=== PATIENT | female | born 1940 | race Two or more races ===

== ENCOUNTER 2017-04-09 20:15 | Inpatient (IN) | payer MEDICARE ==
[~2017-04-09] VITALS: Ht 165.1 cm; Wt 67.6 kg
[~2017-04-09 20:15] MED LIST: ASPIRIN EC81 MG ORAL; ATENOLOL50 MG ORAL; ATORVASTATIN CA20 MG ORAL; GABAPENTIN100 MG ORAL; HYDROCHLOROTHIA25 MG ORAL; MEGACE ES625 MG/5 M PO; MELOXICAM15 MG PO
[2017-04-09] MEDS ORDERED: MAGNESIUM OXID500 M2 PO (20:16)
[2017-04-09] MEDS ORDERED: LEVOTHYROXINE50 MCG ORAL (20:16)
[2017-04-09] MEDS ORDERED: CATAPRES0.1 MG ORAL (20:17)
[2017-04-09 20:24] VITALS: BP 97/55
[2017-04-09] MEDS ORDERED: ATROVENT HFA12.9 GM IH (20:33)
[2017-04-09] MEDS ORDERED: PROAIR HFA8.5 GM INH (20:33)
[2017-04-09] MEDS ORDERED: TRAMADOL HCL50 MG ORAL (20:34)
[2017-04-09] MEDS ORDERED: AMBIEN5 MG ORAL (20:36)
[2017-04-09] MEDS ORDERED: mylanta ORAL (20:36)
[2017-04-09] MEDS ORDERED: NORCO 5-325 TA1 EACH ORAL (20:37)
[2017-04-09 21:22] LABS: ALANINE AMINOTRANSFERASE 6 U/L (3-33); ALBUMIN/GLOBULIN RATIO 0.8 (1.0-2.7); ANION GAP 12 (5-15); ASPARTATE AMINO TRANSFERASE 12 U/L (5-40); CARBON DIOXIDE 27 mEQ/L (20-30); CHLORIDE 95 mEQ/L (98-107); CREATININE 0.8 mg/dL (0.5-0.9); HEMOLYSIS 0; POTASSIUM 4.2 mEQ/L (3.4-4.9); SODIUM 134 mEQ/L (135-145); TOTAL PROTEIN 6.6 g/dL (6.6-8.7); TROPONIN I < 0.30 ng/mL (<=0.30)
[2017-04-09 21:28] LABS: MEAN CORPUSCULAR HEMOGLOBIN 32.6 PG (27.0-31.0); MEAN CORPUSCULAR HGB CONC 32.9 G/DL (32.0-36.0); MEAN CORPUSCULAR VOLUME 99 FL (80-99); MEAN PLATELET VOLUME 5.3 FL (6.5-10.1); PLATELET COUNT 291 K/UL (150-450); RED BLOOD COUNT 1.99 M/UL (4.20-5.40); RED CELL DISTRIBUTION WIDTH 15.8 % (11.6-14.8); WHITE BLOOD COUNT 5.5 K/UL (4.8-10.8)
[2017-04-09 21:33] LABS: CKMB < 1.5 ng/mL (< 3.8)
[2017-04-09 21:37] LABS: APPEARANCE,URINE SLIGHTLY CLOUDY; KETONES,URINE NEGATIVE (NEGATIVE); LEUKOCYTE ESTERASE ,URINE 3+ (NEGATIVE); NITRITE,URINE NEGATIVE (NEGATIVE); PH,URINE 6 (4.5-8.0); PROTEIN,URINE NEGATIVE (NEGATIVE); UROBILINOGEN,URINE NORMAL MG/DL (0.0-1.0)
[2017-04-09 21:42] LABS: BACTERIA,URINE MANY /HPF; SQUAMOUS EPITHELIAL CELL,UR OCCASIONAL /LPF (NONE/OCC); WBC,URINE 30-40 /HPF (0 - 2)
[2017-04-09 21:46] LABS: PROTHROMBIN TIME 10.8 SEC (9.30-11.50)
[2017-04-09] MEDS ORDERED: cefTRIAXone 1 GM in NS 55 ML IVPB ONE (22:15)
[2017-04-09 22:16] VITALS: BP 107/58
[2017-04-09 22:26] LABS: BAND NEUTROPHILS % (MANUAL) 4 % (0-8); BASOPHILS % (MANUAL) 0 % (0-2); EOSINOPHILS % (MANUAL) 1 % (0-3); LYMPHOCYTES % (MANUAL) 24 % (20-45); NEUTROPHILS % (MANUAL) 63 % (45-75); PLATELET ESTIMATE ADEQUATE; TOTAL CELLS COUNTED 100
[2017-04-09 22:27] LABS: ANISOCYTOSIS 1+; MACROCYTES 1+; PLATELET MORPHOLOGY NORMAL; POLYCHROMASIA 1+
[2017-04-09] MEDS ORDERED: Zolpidem 5mg tab ORAL PRN (22:30)
[2017-04-09] MEDS ORDERED: Morphine Sulfate 2mg/ml Inj IVP PRN (22:30)
[2017-04-09] MEDS ORDERED: Miralax 17gm pkt ORAL PRN (22:30)
[2017-04-09] MEDS ORDERED: LORazepam Inj 2mg/ml 1ml IV PRN (22:30)
[2017-04-09] MEDS ORDERED: Mylanta II UD 30ml ORAL PRN (22:30)
--- NOTE | 2017-04-09 22:33 | Emergency Room Report ---
History of Present Illness General Chief Complaint: Abnormal Labs Source: Medical Record Present Illness HPI 76-year-old female presents ED for evaluation. Patient sent in for low hemoglobin and hematocrit from her lab work done recently. [facility] Upon arrival patient showing no signs of distress. Denies any pain. Denies any bleeding. No other aggravating or relieving factors. Denies any other associated symptom Allergies: Coded Allergies: No Known Allergies (Unverified , 04/09/17) Patient History Past Medical History: HTN, other - breast ca' Past Surgical History: none Pertinent Family History: none Social History: Denies: smoking, alcohol use, drug use Now: No Immunizations: UTD Reviewed Nursing Documentation: PMH: Agreed, PSxH: Agreed Nursing Documentation-PMH Past Medical History: No History, Except For Hx Hypertension: Yes Hx Cancer: Yes - h/o breast CA Review of Systems All Other Systems: negative except mentioned in HPI Physical Exam Vital Signs Date Time Temp Pulse Resp B/P (MAP) Pulse Ox O2 Delivery O2 Flow Rate FiO2 04/09/17 20:06 86 14 102/56 95 Room Air 04/09/17 20:24 100.1 Sp02 EP Interpretation: reviewed, normal General Appearance: no apparent distress, alert, GCS 15, non-toxic Head: normocephalic, atraumatic Eyes: bilateral eye normal inspection, bilateral eye PERRL ENT: hearing grossly normal, normal pharynx, no angioedema, normal voice Neck: full range of motion, supple/symm/no masses Respiratory: chest non-tender, lungs clear, normal breath sounds, speaking full sentences Cardiovascular #1: regular rate, rhythm, no edema Cardiovascular #2: 2+ carotid (R), 2+ carotid (L), 2+ radial (R), 2+ radial (L) , 2+ dorsalis pedis (R), 2+ dorsalis pedis (L) Gastrointestinal: normal bowel sounds, non tender, soft, non-distended, no guarding, no rebound Rectal: deferred Genitourinary: normal inspection, no CVA tenderness Musculoskeletal: back normal, gait/station normal, normal range of motion, non- tender Neurologic: alert, oriented x3, responsive, motor strength/tone normal, sensory intact, speech normal Psychiatric: judgement/insight normal, memory normal, mood/affect normal, no suicidal/homicidal ideation Reflexes: 3+ bicep (R), 3+ bicep (L), 3+ tricep (R), 3+ tricep (L), 3+ knee (R) , 3+ knee (L) Skin: normal color, no rash, warm/dry, well hydrated Lymphatic: no adenopathy Medical Decision Making Diagnostic Impression: Primary Impression: Anemia Qualified Codes: D64.9 - Anemia, unspecified Additional Impression: UTI (urinary tract infection) Qualified Codes: N39.0 - Urinary tract infection, site not specified ER Course Hospital Course 76-year-old female presents to ED for evaluation of possible anemia Differential diagnoses include: anemia requiring transfusion, microcytic anemia , macrocytic anemia, heavy blood loss Clinical course Patient placed on stretcher. After initial history and physical I ordered labs including CBC and type and screen. Labs- hemoglobin 6.5. no leukocytosis, Electrolytes okay, UA + bacteria EKG - NSR, no acute changes interpreted by me CXR mild atelectasis PRBCs ordered. Abx given Case discussed with PMD Dr. ludwig who agreed to admit the patient to his service for further care/support Diagnosis - anemia, UTI Admitted to floor in serious condition Labs Test 04/09/17 20:50 04/09/17 20:55 White Blood Count 5.5 K/UL (4.8-10.8) Red Blood Count 1.99 M/UL (4.20-5.40) Hemoglobin 6.5 G/DL (12.0-16.0) Hematocrit 19.7 % (37.0-47.0) Mean Corpuscular Volume 99 FL (80-99) Mean Corpuscular Hemoglobin 32.6 PG (27.0-31.0) Mean Corpuscular Hemoglobin Concent 32.9 G/DL (32.0-36.0) Red Cell Distribution Width 15.8 % (11.6-14.8) Platelet Count 291 K/UL (150-450) Mean Platelet Volume 5.3 FL (6.5-10.1) Neutrophils (%) (Auto) % (45.0-75.0) Lymphocytes (%) (Auto) % (20.0-45.0) Monocytes (%) (Auto) % (1.0-10.0) Eosinophils (%) (Auto) % (0.0-3.0) Basophils (%) (Auto) % (0.0-2.0) Differential Total Cells Counted 100 Neutrophils % (Manual) 63 % (45-75) Lymphocytes % (Manual) 24 % (20-45) Monocytes % (Manual) 8 % (1-10) Eosinophils % (Manual) 1 % (0-3) Basophils % (Manual) 0 % (0-2) Band Neutrophils 4 % (0-8) Platelet Estimate Adequate Platelet Morphology Normal Polychromasia 1+ Anisocytosis 1+ Macrocytosis 1+ Prothrombin Time 10.8 SEC (9.30-11.50) Prothromb Time International Ratio 1.0 (0.9-1.1) Activated Partial Thromboplast Time 33 SEC (23-33) Sodium Level 134 mEQ/L (135-145) Potassium Level 4.2 mEQ/L (3.4-4.9) Chloride Level 95 mEQ/L (98-107) Carbon Dioxide Level 27 mEQ/L (20-30) Anion Gap 12 (5-15) Blood Urea Nitrogen 9 mg/dL (7-23) Creatinine 0.8 mg/dL (0.5-0.9) Estimat Glomerular Filtration Rate mL/min (>60) Glucose Level 98 mg/dL (74-106) Lactic Acid Level 0.80 mmol/L (0.66-2.22) Calcium Level 8.0 mg/dL (8.6-10.2) Total Bilirubin 0.2 mg/dL (0.0-1.2) Aspartate Amino Transf (AST/SGOT) 12 U/L (5-40) Alanine Aminotransferase (ALT/SGPT) 6 U/L (3-33) Alkaline Phosphatase 695 U/L (35-104) Total Creatine Kinase 33 U/L (26-140) Creatine Kinase MB < 1.5 ng/mL (< 3.8) Creatine Kinase MB Relative Index Troponin I < 0.30 ng/mL (<=0.30) Pro-B-Type Natriuretic Peptide 414 pg/mL (0-125) Total Protein 6.6 g/dL (6.6-8.7) Albumin 3.0 g/dL (3.5-5.2) Globulin 3.6 g/dL Albumin/Globulin Ratio 0.8 (1.0-2.7) Urine Color Pale yellow Urine Appearance Slightly cloudy Urine pH 6 (4.5-8.0) Urine Specific [place] 1.005 (1.005-1.035) Urine Protein Negative (NEGATIVE) Urine Glucose (UA) Negative (NEGATIVE) Urine Ketones Negative (NEGATIVE) Urine Occult Blood 1+ (NEGATIVE) Urine Nitrite Negative (NEGATIVE) Urine Bilirubin Negative (NEGATIVE) Urine Urobilinogen Normal MG/DL (0.0-1.0) Urine Leukocyte Esterase 3+ (NEGATIVE) Urine RBC 10-15 /HPF (0 - 2) Urine WBC 30-40 /HPF (0 - 2) Urine Squamous Epithelial Cells Occasional /LPF Urine Bacteria Many /HPF (NONE) EKG Diagnostic Results Rate: normal Rhythm: NSR ST Segments: no acute changes ASA given to the pt in ED: No Rhythm Strip Diag. Results EP Interpretation: yes Rhythm: NSR, no PVC's, no ectopy Chest X-Ray Diagnostic Results Chest X-Ray Diagnostic Results : Chest X-Ray Ordered: Yes # of Views/Limited/Complete: 1 View Indication: Other - fever EP Interpretation: Yes Interpretation: no consolidation, no pneumothorax, no acute cardiopulmonary disease, other - atelectasis Impression: No acute disease Interpreting ER Provider: Electronically signed by Srikanth Joe MD Last Vital Signs Date Time Temp Pulse Resp B/P (MAP) Pulse Ox O2 Delivery O2 Flow Rate FiO2 04/09/17 22:16 98.0 83 12 107/58 100 Room Air Status: improved Disposition: ADMITTED INPATIENT Condition: Serious Referrals: [facility],REFERRING (PCP) SRIKANTH JOE M.D. Apr 09, 2017 22:32
[2017-04-10 00:40] VITALS: BP 101/48
[2017-04-10 04:00] VITALS: BP 96/52
[2017-04-10 07:49] VITALS: BP 97/50
[2017-04-10 11:03] LABS: BASOPHILS % (AUTO) 0.5 % (0.0-2.0); EOSINOPHILS % (AUTO) 0.8 % (0.0-3.0); LYMPHOCYTES % (AUTO) 25.3 % (20.0-45.0); MEAN CORPUSCULAR HEMOGLOBIN 30.6 PG (27.0-31.0); MEAN CORPUSCULAR HGB CONC 31.5 G/DL (32.0-36.0); MEAN CORPUSCULAR VOLUME 97 FL (80-99); MEAN PLATELET VOLUME 5.1 FL (6.5-10.1); MONOCYTES % (AUTO) 9.2 % (1.0-10.0); NEUTROPHILS % (AUTO) 64.1 % (45.0-75.0); PLATELET COUNT 304 K/UL (150-450); RED BLOOD COUNT 2.92 M/UL (4.20-5.40); RED CELL DISTRIBUTION WIDTH 15.9 % (11.6-14.8); WHITE BLOOD COUNT 5.7 K/UL (4.8-10.8)
[2017-04-10 11:28] LABS: ALANINE AMINOTRANSFERASE 6 U/L (3-33); ALBUMIN/GLOBULIN RATIO 0.8 (1.0-2.7); ANION GAP 11 (5-15); ASPARTATE AMINO TRANSFERASE 12 U/L (5-40); CALCIUM 7.8 mg/dL (8.6-10.2); CARBON DIOXIDE 26 mEQ/L (20-30); CHLORIDE 104 mEQ/L (98-107); CREATININE 0.7 mg/dL (0.5-0.9); HEMOLYSIS 1; POTASSIUM 4.3 mEQ/L (3.4-4.9); SODIUM 141 mEQ/L (135-145); TOTAL PROTEIN 6.5 g/dL (6.6-8.7)
[2017-04-10 11:57] VITALS: BP 117/67
--- NOTE | 2017-04-10 12:28 | Cardiology Report ---
APPROVED REPORT EKG Measurement Heart [id number] Normal sinus rhythm Nonspecific ST and T wave abnormality Abnormal ECG
--- NOTE | 2017-04-10 15:20 | History and Physical ---
History of Present Illness General Date patient seen: Apr 10, 2017 Reason for Hospitalization: Abnormal Labs Present Illness HPI 76 year old female transferred to [facility] [place] for evaluation of low hemoglobin. Pt doens't have any sing or symptoms of acute bleeding. Admitted anemia w/u and transfusion. Allergies: Coded Allergies: No Known Allergies (Unverified , 04/09/17) Medication History Scheduled Albuterol Sulfate* (Proair Hfa*), 1 PUFF INH Q6H, (Reported) Aspirin Ec* (Aspirin Ec*), 81 MG ORAL DAILY, (Reported) Atenolol* (Tenormin*), 50 MG ORAL DAILY, (Reported) Atorvastatin Calcium* (Atorvastatin Calcium*), 20 MG ORAL BEDTIME, (Reported) Clonidine Hcl* (Catapres*), 0.1 MG ORAL EVERY 6 HOURS, (Reported) Gabapentin* (Gabapentin*), 100 MG ORAL THREE TIMES A DAY, (Reported) Hydrochlorothiazide* (Hydrochlorothiazide*), 25 MG ORAL DAILY, (Reported) Levothyroxine Sodium* (Levothyroxine Sodium*), 50 MCG ORAL DAILY, (Reported) Meloxicam* (Meloxicam*), 15 MG PO DAILY, (Reported) Scheduled PRN Hydrocodone Bit/Acetaminophen 5-325* (Meigs 5-325*), 1 TAB ORAL Q4H PRN for For Pain, (Reported) Tramadol Hcl* (Ultram*), 50 MG ORAL Q6H PRN for For Pain, (Reported) Zolpidem Tartrate* (Ambien*), 5 MG ORAL BEDTIME PRN for Insomnia, (Reported) Miscellaneous Medications Ipratropium [place] (Atrovent Hfa), 12.9 GM IH, (Reported) Magnesium Oxide (Magnesium Oxide), 400 MG PO, (Reported) Megestrol Acetate (Megace Es), 400 MG PO, (Reported) [mylanta], 30 ML ORAL, (Reported) Patient History Healthcare decision maker Resuscitation status Advanced Directive on File Past Medical/Surgical History Past Medical/Surgical History: (1) Hypertension (2) Hypothyroid (3) Breast cancer Review of Systems All Other Systems: negative except mentioned in HPI Physical Exam General Appearance: cachetic Lines, tubes and drains: peripheral HEENT: normocephalic, atraumatic Respiratory/Chest: chest wall non-tender, lungs clear Breasts: no masses Cardiovascular/Chest: normal peripheral pulses Abdomen: normal bowel sounds Genitourinary/Rectal: normal genital exam Last 24 Hour Vital Signs Date Time Temp Pulse Resp B/P (MAP) Pulse Ox O2 Delivery O2 Flow Rate FiO2 04/10/17 12:34 117/67 04/10/17 11:57 98.4 89 20 117/67 96 Room Air 04/10/17 08:22 87 97/50 04/10/17 07:49 98.0 87 18 97/50 99 Room Air 04/10/17 05:41 103/66 04/10/17 04:00 98.8 92 18 96/52 98 Room Air 04/10/17 01:10 98.9 81 19 101/48 98 Room Air 04/10/17 00:40 98.9 81 19 101/48 98 Room Air 04/10/17 00:05 100.0 86 12 04/09/17 23:50 98.0 86 17 04/09/17 22:16 98.0 83 12 107/58 100 Room Air 04/09/17 20:24 100.1 83 9 97/55 95 Room Air 04/09/17 20:06 86 14 102/56 95 Room Air Intake and Output 04/10/17 04/11/17 19:00 07:00 Intake Total 240 ml Output Total 1500 ml Balance -1260 ml Intake Oral 240 ml Output Urine Total 1500 ml # Bowel Movements 1 Laboratory Tests Test 04/09/17 20:50 04/09/17 20:55 04/10/17 10:30 White Blood Count 5.5 K/UL (4.8-10.8) 5.7 K/UL (4.8-10.8) Red Blood Count 1.99 M/UL (4.20-5.40) L 2.92 M/UL (4.20-5.40) L Hemoglobin 6.5 G/DL (12.0-16.0) *L 8.9 G/DL (12.0-16.0) #L Hematocrit 19.7 % (37.0-47.0) L 28.4 % (37.0-47.0) #L Mean Corpuscular Volume 99 FL (80-99) 97 FL (80-99) Mean Corpuscular Hemoglobin 32.6 PG (27.0-31.0) H 30.6 PG (27.0-31.0) Mean Corpuscular Hemoglobin Concent 32.9 G/DL (32.0-36.0) 31.5 G/DL (32.0-36.0) L Red Cell Distribution Width 15.8 % (11.6-14.8) H 15.9 % (11.6-14.8) H Platelet Count 291 K/UL (150-450) 304 K/UL (150-450) Mean Platelet Volume 5.3 FL (6.5-10.1) L 5.1 FL (6.5-10.1) L Neutrophils (%) (Auto) % (45.0-75.0) 64.1 % (45.0-75.0) Lymphocytes (%) (Auto) % (20.0-45.0) 25.3 % (20.0-45.0) Monocytes (%) (Auto) % (1.0-10.0) 9.2 % (1.0-10.0) Eosinophils (%) (Auto) % (0.0-3.0) 0.8 % (0.0-3.0) Basophils (%) (Auto) % (0.0-2.0) 0.5 % (0.0-2.0) Differential Total Cells Counted 100 Neutrophils % (Manual) 63 % (45-75) Lymphocytes % (Manual) 24 % (20-45) Monocytes % (Manual) 8 % (1-10) Eosinophils % (Manual) 1 % (0-3) Basophils % (Manual) 0 % (0-2) Band Neutrophils 4 % (0-8) Platelet Estimate Adequate Platelet Morphology Normal Polychromasia 1+ Anisocytosis 1+ Macrocytosis 1+ Prothrombin Time 10.8 SEC (9.30-11.50) Prothromb Time International Ratio 1.0 (0.9-1.1) Activated Partial Thromboplast Time 33 SEC (23-33) Sodium Level 134 mEQ/L (135-145) L 141 mEQ/L (135-145) Potassium Level 4.2 mEQ/L (3.4-4.9) 4.3 mEQ/L (3.4-4.9) Chloride Level 95 mEQ/L (98-107) L 104 mEQ/L (98-107) Carbon Dioxide Level 27 mEQ/L (20-30) 26 mEQ/L (20-30) Anion Gap 12 (5-15) 11 (5-15) Blood Urea Nitrogen 9 mg/dL (7-23) 7 mg/dL (7-23) Creatinine 0.8 mg/dL (0.5-0.9) 0.7 mg/dL (0.5-0.9) Estimat Glomerular Filtration Rate mL/min (>60) mL/min (>60) Glucose Level 98 mg/dL (74-106) 101 mg/dL (74-106) Lactic Acid Level 0.80 mmol/L (0.66-2.22) Calcium Level 8.0 mg/dL (8.6-10.2) L 7.8 mg/dL (8.6-10.2) L Total Bilirubin 0.2 mg/dL (0.0-1.2) < 0.2 mg/dL (0.0-1.2) Aspartate Amino Transf (AST/SGOT) 12 U/L (5-40) 12 U/L (5-40) Alanine Aminotransferase (ALT/SGPT) 6 U/L (3-33) 6 U/L (3-33) Alkaline Phosphatase 695 U/L (35-104) H 692 U/L (35-104) H Total Creatine Kinase 33 U/L (26-140) Creatine Kinase MB < 1.5 ng/mL (< 3.8) Creatine Kinase MB Relative Index Troponin I < 0.30 ng/mL (<=0.30) Pro-B-Type Natriuretic Peptide 414 pg/mL (0-125) H Total Protein 6.6 g/dL (6.6-8.7) 6.5 g/dL (6.6-8.7) L Albumin 3.0 g/dL (3.5-5.2) L 2.9 g/dL (3.5-5.2) L Globulin 3.6 g/dL 3.6 g/dL Albumin/Globulin Ratio 0.8 (1.0-2.7) L 0.8 (1.0-2.7) L Urine Color Pale yellow Urine Appearance Slightly cloudy Urine pH 6 (4.5-8.0) Urine Specific [place] 1.005 (1.005-1.035) Urine Protein Negative (NEGATIVE) Urine Glucose (UA) Negative (NEGATIVE) Urine Ketones Negative (NEGATIVE) Urine Occult Blood 1+ (NEGATIVE) H Urine Nitrite Negative (NEGATIVE) Urine Bilirubin Negative (NEGATIVE) Urine Urobilinogen Normal MG/DL (0.0-1.0) Urine Leukocyte Esterase 3+ (NEGATIVE) H Urine RBC 10-15 /HPF (0 - 2) H Urine WBC 30-40 /HPF (0 - 2) H Urine Squamous Epithelial Cells Occasional /LPF Urine Bacteria Many /HPF (NONE) H Thyroid Stimulating Hormone (TSH) 1.380 uIU/mL (0.300-4.500) Height (Feet): 5 Height (Inches): 5.00 Weight (Pounds): 149 Medications Current Medications Medications (Trade) Dose Ordered Sig/Neymar Route PRN Reason Start Time Stop Time Status Last Admin Dose Admin Acetaminophen (Tylenol) 650 mg Q4H PRN ORAL fever 04/09/17 22:30 05/09/17 22:29 04/10/17 00:17 Al Hydroxide/Mg Hydroxide (Mylanta II) 30 ml Q6H PRN ORAL dyspepsia 04/09/17 22:30 05/09/17 22:29 Atenolol (Tenormin) 50 mg DAILY ORAL 04/10/17 09:00 05/10/17 08:59 Clonidine HCl (Catapres) 0.1 mg EVERY 6 HOURS ORAL 04/10/17 00:00 05/10/17 00:00 Dextrose (Dextrose 50%) STAT PRN IV Hypoglycemia 04/09/17 22:30 05/09/17 22:29 Gabapentin (Neurontin) 100 mg THREE TIMES A DAY ORAL 04/10/17 09:00 05/10/17 08:59 04/10/17 13:25 Levothyroxine Sodium (Synthroid) 50 mcg ACBREAKFAST ORAL 04/10/17 06:30 05/10/17 06:29 04/10/17 06:05 Lorazepam (Ativan 2mg/ml 1ml) 0.5 mg Q4H PRN IV For Anxiety 04/09/17 22:30 04/16/17 22:29 Morphine Sulfate (Morphine Sulfate) 1 mg EVERY 4 HOURS PRN IVP For Pain 04/09/17 22:30 04/16/17 22:29 Ondansetron HCl (Zofran) 4 mg Q6H PRN IVP Nausea & Vomiting 04/09/17 22:30 05/09/17 22:29 Polyethylene Glycol (Miralax) 17 gm HSPRN PRN ORAL Constipation 04/09/17 22:30 05/09/17 22:29 Zolpidem Tartrate (Ambien) 5 mg HSPRN PRN ORAL Insomnia 04/09/17 22:30 04/16/17 22:29 Assessment/Plan Problem List: (1) Anemia ICD Codes: D64.9 - Anemia, unspecified SNOMED: 580867878 Qualifiers: Qualified Codes: D64.9 - Anemia, unspecified (2) Hypothyroid ICD Codes: E03.9 - Hypothyroidism, unspecified SNOMED: 58426187 (3) Breast cancer ICD Codes: C50.919 - Malignant neoplasm of unspecified site of unspecified female breast SNOMED: 511351016 Assessment/Plan prbc anemia w/u prbc transfusion tumor markers. NEIL CRANE Apr 10, 2017 15:20
[2017-04-10] MEDS ORDERED: Tubing IV Blood Pump IV ONE (16:08)
[2017-04-10] MEDS ORDERED: NS 275ml ONE (16:08)
[2017-04-10 16:12] VITALS: BP 114/63
[2017-04-10 20:00] VITALS: BP 106/61
[2017-04-11 00:38] VITALS: BP 97/64
[2017-04-11 07:11] LABS: MEAN CORPUSCULAR HEMOGLOBIN 32.4 PG (27.0-31.0); MEAN CORPUSCULAR HGB CONC 33.8 G/DL (32.0-36.0); MEAN CORPUSCULAR VOLUME 96 FL (80-99); MEAN PLATELET VOLUME 5.3 FL (6.5-10.1); PLATELET COUNT 278 K/UL (150-450); RED BLOOD COUNT 2.86 M/UL (4.20-5.40); RED CELL DISTRIBUTION WIDTH 15.2 % (11.6-14.8); WHITE BLOOD COUNT 5.6 K/UL (4.8-10.8)
[2017-04-11 07:52] LABS: PROTHROMBIN TIME 10.7 SEC (9.30-11.50)
[2017-04-11 08:00] VITALS: BP 103/55
[2017-04-11 08:28] LABS: RETICULOCYTE COUNT 1.3 % (0.0-2.0)
--- NOTE | 2017-04-11 09:19 | Diagnostic Imaging Report ---
Indication: Shortness of breath Technique: One view of the chest Comparison: none Findings: The aorta is tortuous. The heart is upper limits of normal in size. Equivocally some hazy opacity is seen in the right mid and lower lung. There is some atelectasis at the right lung base Lungs and pleural space otherwise clear. Bones are grossly intact. Impression: Equivocal slight hazy opacity right lung. Right basilar atelectasis No acute process otherwise This agrees with the preliminary interpretation provided overnight by [facility] teleradiology service.
[2017-04-11 09:30] LABS: ANISOCYTOSIS 1+; BAND NEUTROPHILS % (MANUAL) 0 % (0-8); BASOPHILS % (MANUAL) 0 % (0-2); EOSINOPHILS % (MANUAL) 1 % (0-3); LYMPHOCYTES % (MANUAL) 39 % (20-45); NEUTROPHILS % (MANUAL) 49 % (45-75); PLATELET ESTIMATE ADEQUATE; PLATELET MORPHOLOGY NORMAL; TOTAL CELLS COUNTED 100
[2017-04-11 09:31] LABS: ERYTHROCYTE SEDIMENTATION RATE 130 MM/HR (0-30); HYPOCHROMASIA 1+; PATH BLOOD SMEAR/OMC SENT TO PATHOLOGIST
[2017-04-11 12:04] VITALS: BP 107/61
--- NOTE | 2017-04-11 13:59 | Pulmonology Progress Note ---
Assessment/Plan Problems: (1) Anemia (2) Hypothyroid (3) Breast cancer Assessment/Plan w/u in progress now CEA noted bone scan to rule out bone mets Subjective ROS Limited/Unobtainable: No Constitutional: Reports: no symptoms HEENT: Repors: no symptoms Respiratory: Reports: no symptoms Allergies: Coded Allergies: No Known Allergies (Unverified , 04/09/17) Objective Last 24 Hour Vital Signs Date Time Temp Pulse Resp B/P (MAP) Pulse Ox O2 Delivery O2 Flow Rate FiO2 04/11/17 12:04 97.7 80 20 107/61 100 Room Air 80 04/11/17 12:00 107/61 04/11/17 08:41 81 103/55 04/11/17 08:00 96.6 81 20 103/55 100 Room Air 04/11/17 05:27 102/53 04/11/17 00:38 98.1 80 20 97/64 99 Room Air 04/11/17 00:00 97/64 04/10/17 20:00 99.1 77 19 106/61 97 Room Air 04/10/17 17:34 114/63 04/10/17 16:12 98.2 79 20 114/63 96 Room Air General Appearance: WD/WN HEENT: normocephalic, atraumatic Respiratory/Chest: chest wall non-tender, lungs clear Cardiovascular: normal peripheral pulses, normal rate Abdomen: normal bowel sounds, soft, non tender Genitourinary: normal external genitalia Extremities: no cyanosis Neurologic/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: valve 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 normal, no motor/sensory deficits Microbiology Date/Time Source Procedure Growth Status 04/09/17 20:55 Blood Blood Culture - Preliminary NO GROWTH AFTER 24 HOURS Resulted 04/09/17 20:40 Blood Blood Culture - Preliminary NO GROWTH AFTER 24 HOURS Resulted 04/09/17 20:55 Urine,Clean Catch Urine Culture - Preliminary Gram Negative Bacillus 1 Resulted Laboratory Tests 04/11/17 05:35: White Blood Count 5.6, Red Blood Count 2.86L, Hemoglobin 9.3L, Hematocrit 27.4L , Mean Corpuscular Volume 96, Mean Corpuscular Hemoglobin 32.4H, Mean Corpuscular Hemoglobin Concent 33.8, Red Cell Distribution Width 15.2H, Platelet Count 278, Mean Platelet Volume 5.3L, Neutrophils (%) (Auto) , Lymphocytes (%) (Auto) , Monocytes (%) (Auto) , Eosinophils (%) (Auto) , Basophils (%) (Auto) , Differential Total Cells Counted 100, Neutrophils % ( Manual) 49, Lymphocytes % (Manual) 39, Monocytes % (Manual) 11H, Eosinophils % ( Manual) 1, Basophils % (Manual) 0, Band Neutrophils 0, Platelet Estimate Adequate, Platelet Morphology Normal, Hypochromasia 1+, Anisocytosis 1+, Erythrocyte Sedimentation Rate 130H, Reticulocyte Count 1.3, Prothrombin Time 10.7, Prothromb Time International Ratio 1.0, Activated Partial Thromboplast Time 35H, Iron Level 44, Total Iron Binding Capacity 219L, Percent Iron Saturation 20, Unsaturated Iron Binding 175, Lactate Dehydrogenase 295H, Carcinoembryonic Antigen 111.9H, Vitamin B12 Level 941, Folate [Pending] 04/11/17 11:30: Stool Occult Blood [Pending] Current Medications Medications (Trade) Dose Ordered Sig/Neymar Route PRN Reason Start Time Stop Time Status Last Admin Dose Admin Acetaminophen (Tylenol) 650 mg Q4H PRN ORAL fever 04/09/17 22:30 05/09/17 22:29 04/10/17 00:17 Al Hydroxide/Mg Hydroxide (Mylanta II) 30 ml Q6H PRN ORAL dyspepsia 04/09/17 22:30 05/09/17 22:29 Atenolol (Tenormin) 50 mg DAILY ORAL 04/10/17 09:00 05/10/17 08:59 Clonidine HCl (Catapres) 0.1 mg EVERY 6 HOURS ORAL 04/10/17 00:00 05/10/17 00:00 Dextrose (Dextrose 50%) STAT PRN IV Hypoglycemia 04/09/17 22:30 05/09/17 22:29 Gabapentin (Neurontin) 100 mg THREE TIMES A DAY ORAL 04/10/17 09:00 05/10/17 08:59 04/11/17 13:28 Levothyroxine Sodium (Synthroid) 50 mcg ACBREAKFAST ORAL 04/10/17 06:30 05/10/17 06:29 04/11/17 06:10 Lorazepam (Ativan 2mg/ml 1ml) 0.5 mg Q4H PRN IV For Anxiety 04/09/17 22:30 04/16/17 22:29 Morphine Sulfate (Morphine Sulfate) 1 mg EVERY 4 HOURS PRN IVP For Pain 04/09/17 22:30 04/16/17 22:29 Ondansetron HCl (Zofran) 4 mg Q6H PRN IVP Nausea & Vomiting 04/09/17 22:30 05/09/17 22:29 Polyethylene Glycol (Miralax) 17 gm HSPRN PRN ORAL Constipation 04/09/17 22:30 05/09/17 22:29 Zolpidem Tartrate (Ambien) 5 mg HSPRN PRN ORAL Insomnia 04/09/17 22:30 04/16/17 22:29 NEIL CRANE Apr 11, 2017 13:59
[2017-04-11] MEDS ORDERED: Morphine Sulfate 2mg/ml Inj IVP PRN (15:00)
[2017-04-11] MEDS: Norco 5mg/325mg tab ORAL PRN (15:13)
[2017-04-11 16:00] VITALS: BP 108/66
[2017-04-11 20:00] VITALS: BP 121/70
[2017-04-11] MEDS: cefTRIAXone 1 GM in D5W 55 ML IVPB SCH (22:00)
[2017-04-12] VITALS (7 sets, daily range): BP systolic 100–119; BP diastolic 51–68
--- NOTE | 2017-04-12 03:16 | Consultation ---
DATE OF CONSULTATION: 04/11/2017 HEMATOLOGY/ONCOLOGY CONSULTATION CONSULTING PHYSICIAN: Ej Romero M.D. ADMITTING PHYSICIAN: Ginger Goyal M.D. REQUESTING PHYSICIAN: Ginger Goyal M.D. REASON FOR CONSULTATION: Severe anemia. CURRENT COMPLAINT AND HISTORY OF PRESENT ILLNESS: Dear Dr. Goyal: Today, I had an opportunity to see one of your patients, who as you are well aware, is a 76-year-old delightful female with extensive past medical history remarkable for breast cancer and hypertension. The patient is a resident of long-term facility. It was no obvious bleeding symptoms. My service was called to handle the issue of blood dyscrasia as well as history of breast cancer. PAST MEDICAL HISTORY: 1. History of breast cancer. 2. Hypertension. 3. History of anemia. MEDICATIONS: 1. Hydrocodone. 2. Morphine. 3. Tenormin. 4. Neurontin. 5. Levothyroxine. 6. Catapres. 7. Tylenol. 8. MiraLAX. 9. Zofran. 10. Lorazepam. 11. Ambien. 12. Mylanta. 13. Dextrose. SOCIAL HISTORY: No history of smoking. No history of alcohol abuse. No history of illicit drug use. FAMILY HISTORY: Noncontributory. REVIEW OF SYSTEMS: General Description: The patient is not in any significant distress, but looks chronically ill. Respiratory: Mild shortness of breath on exertion. Gastrointestinal: The patient claimed constipation. Neuromuscular: The patient claimed muscle aches. PHYSICAL EXAMINATION: VITAL SIGNS: T-max 97 degrees. Respiratory rate 20. Heart rate 80. Blood pressure 130/80. HEENT: Head: Normocephalic and atraumatic. NECK: Supple. No thyroid enlargement. No lymphadenopathy. LUNGS: Decreased breath sounds bilaterally with few rhonchi in the bases. HEART: S1 and S2 regular. ABDOMEN: Soft and benign. No organomegaly present. Bowel sounds present. EXTREMITIES: No cyanosis, clubbing, or edema. LABORATORY DATA: WBC 5.6, hemoglobin 9.6, hematocrit 27.4, and platelets 278,000. INR 1.0. Chemistry shows CEA 111. Creatinine of 0.7. Alkaline phosphatase 692. Stool for OB positive. IMPRESSION: 1. Anemia secondary to gastrointestinal bleed. 2. Anemia of chronic disease. 3. Anemia of iron deficiency. 4. Elevated level of CEA, rule out gastrointestinal malignancy. 5. History of breast cancer. 6. Hypertension. 7. Hypothyroidism. 8. Malnutrition. 9. Failure to thrive. RECOMMENDATION: 1. Watch count. 2. Watch coagulopathy. 3. PRBC transfusion on p.r.n. basis. 4. CT scan of the abdomen. 5. Rule out the cough malignancy. 6. GI evaluation. 7. Check tumor markers. 8. Venous Doppler of bilateral lower extremities to rule out DVT. 9. Skin care. 10. Nutrition. 11. Anemia workup to be completed. 12. Pulmonary followup. 13. Continue current treatment. 14. Discussed with the staff. Ej Romero MD DR: SHARITA JOB#: [id number] CC:
[2017-04-12 06:54] LABS: EOSINOPHILS % (AUTO) 0.7 % (0.0-3.0); MEAN CORPUSCULAR HEMOGLOBIN 31.3 PG (27.0-31.0); MEAN CORPUSCULAR HGB CONC 32.1 G/DL (32.0-36.0); MEAN CORPUSCULAR VOLUME 98 FL (80-99); MEAN PLATELET VOLUME 5.5 FL (6.5-10.1); MONOCYTES % (AUTO) 10.6 % (1.0-10.0); NEUTROPHILS % (AUTO) 45.6 % (45.0-75.0); PLATELET COUNT 277 K/UL (150-450); RED BLOOD COUNT 2.81 M/UL (4.20-5.40); RED CELL DISTRIBUTION WIDTH 15.6 % (11.6-14.8); WHITE BLOOD COUNT 4.5 K/UL (4.8-10.8)
--- NOTE | 2017-04-12 15:47 | Pulmonology Progress Note ---
Assessment/Plan Assessment/Plan ASSESSMENT anemia requiring blood transfusion anemia of chronic disease hypothyroidism breast CA UTI HTN noncompliance PLAN OF CARE MS floor s/p blood transfusion HH up anemia w/up c/w anemia of chronic disease elevated CA 19-9 -480.9 and CEA-111.9 other such as AFP, CA 27-29, Ca 15-3 pending heme/onco follows stool OB CT A/P elevated Alk phosphatase, check bone scan urine cx + Klebsiella abx venous Duplex BLE CXR with slight hazy opacity right lung, right basilar atelectasis O2 HHN prn on RA pulse oximetry stable BP management with BB and titrate as needed PT eval and Rx TSH WNL, continue current dose of levothyroxine patient noncompliant and declining most of care consider hospice care case discussed and evaluated by supervising physician case discussed and evaluated by supervising physician Subjective Allergies: Coded Allergies: No Known Allergies (Unverified , 04/09/17) Subjective denies any pain, wants to go home( SNF) declining most of the care Objective Last 24 Hour Vital Signs Date Time Temp Pulse Resp B/P (MAP) Pulse Ox O2 Delivery O2 Flow Rate FiO2 04/12/17 12:19 98.2 74 20 112/60 100 Room Air 04/12/17 12:00 112/60 04/12/17 09:00 85 109/64 04/12/17 08:50 98.0 85 19 109/64 98 Room Air 04/12/17 05:22 119/68 04/12/17 04:00 98.1 75 18 119/68 98 Room Air 04/12/17 00:00 110/59 04/12/17 00:00 99.5 68 21 110/59 98 Room Air 04/11/17 20:00 97.9 85 20 121/70 98 Room Air 04/11/17 17:35 105/62 04/11/17 16:00 99.3 80 20 108/66 97 Room Air Intake and Output 04/12/17 04/13/17 19:00 07:00 Intake Total 360 ml Output Total 400 ml Balance -40 ml Intake Oral 360 ml Output Urine Total 400 ml General Appearance: no acute distress HEENT: normocephalic, atraumatic, anicteric Respiratory/Chest: lungs clear, no respiratory distress, no accessory muscle use Cardiovascular: normal peripheral pulses, normal rate, regular rhythm, no JVD Abdomen: normal bowel sounds, soft, non tender Extremities: no edema, pedal pulses normal Neurologic/Psychiatric: no motor/sensory deficits, alert, normal mood/affect Microbiology Date/Time Source Procedure Growth Status 04/09/17 20:55 Blood Blood Culture - Preliminary NO GROWTH AFTER 48 HOURS Resulted 04/09/17 20:40 Blood Blood Culture - Preliminary NO GROWTH AFTER 48 HOURS Resulted 04/10/17 00:48 Nasal Nares MRSA Culture - Final NO METHICILLIN RESISTANT STAPH AUREUS... Complete 04/09/17 20:55 Urine,Clean Catch Urine Culture - Final Klebsiella Oxytoca Complete 04/10/17 00:48 Rectum VRE Culture - Final Enterococcus Faecalis - Vre Complete Laboratory Tests 04/12/17 04:40: White Blood Count 4.5L, Red Blood Count 2.81L, Hemoglobin 8.8L, Hematocrit 27.5L , Mean Corpuscular Volume 98, Mean Corpuscular Hemoglobin 31.3H, Mean Corpuscular Hemoglobin Concent 32.1, Red Cell Distribution Width 15.6H, Platelet Count 277, Mean Platelet Volume 5.5L, Neutrophils (%) (Auto) 45.6, Lymphocytes (%) (Auto) 42.0, Monocytes (%) (Auto) 10.6H, Eosinophils (%) (Auto) 0.7, Basophils (%) (Auto) 1.0 Current Medications Medications (Trade) Dose Ordered Sig/Neymar Route PRN Reason Start Time Stop Time Status Last Admin Dose Admin Acetaminophen (Tylenol) 650 mg Q4H PRN ORAL fever 04/09/17 22:30 05/09/17 22:29 04/10/17 00:17 Acetaminophen/ Hydrocodone Bitart ([place] 5/325) 1 tab Q4H PRN ORAL Moderate Pain (Pain Scale 4-6) 04/11/17 15:00 04/18/17 14:59 04/11/17 15:13 Al Hydroxide/Mg Hydroxide (Mylanta II) 30 ml Q6H PRN ORAL dyspepsia 04/09/17 22:30 05/09/17 22:29 Atenolol (Tenormin) 50 mg DAILY ORAL 04/10/17 09:00 05/10/17 08:59 Bisacodyl (Dulcolax) 10 mg ONCE ONCE ORAL 04/12/17 16:00 04/12/17 16:01 Ceftriaxone Sodium 1 gm/ Dextrose 55 ml @ 110 mls/hr Q24H IVPB 04/11/17 22:00 04/18/17 21:59 Clonidine HCl (Catapres) 0.1 mg EVERY 6 HOURS ORAL 04/10/17 00:00 05/10/17 00:00 Dextrose (Dextrose 50%) STAT PRN IV Hypoglycemia 04/09/17 22:30 05/09/17 22:29 Dextrose/ Electrolytes 1,000 ml @ 75 mls/hr [id number] IV 04/12/17 16:00 05/12/17 15:59 Gabapentin (Neurontin) 100 mg THREE TIMES A DAY ORAL 04/10/17 09:00 05/10/17 08:59 04/12/17 13:29 Levothyroxine Sodium (Synthroid) 50 mcg ACBREAKFAST ORAL 04/10/17 06:30 05/10/17 06:29 04/12/17 06:11 Lorazepam (Ativan 2mg/ml 1ml) 0.5 mg Q4H PRN IV For Anxiety 04/09/17 22:30 04/16/17 22:29 Magnesium Citrate (Citrate Of Magnesia) 300 ml ONCE ONCE ORAL 04/12/17 20:00 04/12/17 20:01 Morphine Sulfate (Morphine Sulfate) 1 mg EVERY 4 HOURS PRN IVP Severe Pain (Pain Scale 7-10) 04/11/17 15:00 04/18/17 14:59 Ondansetron HCl (Zofran) 4 mg Q6H PRN IVP Nausea & Vomiting 04/09/17 22:30 05/09/17 22:29 Polyethylene Glycol (Miralax) 17 gm HSPRN PRN ORAL Constipation 04/09/17 22:30 05/09/17 22:29 Polyethylene Glycol (Miralax) 238 gm ONCE ONCE ORAL 04/12/17 16:00 04/12/17 16:01 Zolpidem Tartrate (Ambien) 5 mg HSPRN PRN ORAL Insomnia 04/09/17 22:30 04/16/17 22:29 Amber Dominguez NP (Vanchtein) Apr 12, 2017 15:47
[2017-04-12] MEDS ORDERED: DuoNeb 0.5-3(2.5)mg/3ml neb HHN PRN (16:00)
[2017-04-12] MEDS ORDERED: D5 1/2NS w/KCl 20mEq 1,000 ML IV SCH (16:00)
[2017-04-12] MEDS ORDERED: Bisacodyl EC 5mg tab ORAL ONE (16:00)
[2017-04-12] MEDS ORDERED: Polyethylene Glycol 238gm bottle ORAL ONE (16:00)
[2017-04-12] MEDS: Norco 5mg/325mg tab ORAL PRN (16:33)
[2017-04-12] MEDS ORDERED: Magnesium Citrate Liq Btl ORAL ONE (20:00)
[2017-04-12] MEDS: cefTRIAXone 1 GM in D5W 55 ML IVPB SCH (20:38)
[2017-04-13 04:06] VITALS: BP 107/51
[2017-04-13 07:02] LABS: BASOPHILS % (AUTO) 0.8 % (0.0-2.0); EOSINOPHILS % (AUTO) 1.2 % (0.0-3.0); LYMPHOCYTES % (AUTO) 50.4 % (20.0-45.0); MEAN CORPUSCULAR HEMOGLOBIN 31.5 PG (27.0-31.0); MEAN CORPUSCULAR HGB CONC 32.1 G/DL (32.0-36.0); MEAN CORPUSCULAR VOLUME 98 FL (80-99); MEAN PLATELET VOLUME 5.3 FL (6.5-10.1); MONOCYTES % (AUTO) 9.9 % (1.0-10.0); NEUTROPHILS % (AUTO) 37.7 % (45.0-75.0); PLATELET COUNT 283 K/UL (150-450); RED BLOOD COUNT 2.87 M/UL (4.20-5.40); RED CELL DISTRIBUTION WIDTH 15.4 % (11.6-14.8)
[2017-04-13 07:12] LABS: ALANINE AMINOTRANSFERASE 8 U/L (3-33); ALBUMIN/GLOBULIN RATIO 0.7 (1.0-2.7); ANION GAP 14 (5-15); ASPARTATE AMINO TRANSFERASE 16 U/L (5-40); CALCIUM 8.5 mg/dL (8.6-10.2); CARBON DIOXIDE 24 mEQ/L (20-30); CHLORIDE 106 mEQ/L (98-107); CREATININE 0.6 mg/dL (0.5-0.9); HEMOLYSIS 0; POTASSIUM 4.6 mEQ/L (3.4-4.9); SODIUM 144 mEQ/L (135-145); TOTAL PROTEIN 6.8 g/dL (6.6-8.7)
[2017-04-13 08:12] VITALS: BP 100/47
--- NOTE | 2017-04-13 10:30 | Consultation ---
DATE OF CONSULTATION: 04/12/2017 CHIEF COMPLAINT: Anemia, stool OB positive, elevated CEA. HISTORY OF PRESENT ILLNESS: This is a 76-year-old female, residing in a [facility], who was transferred to the hospital with low hemoglobin. The patient is a very poor historian. Apparently, she got breast cancer. I do not know if she got any treatment; when I asked her, she stated, "Whatever you guys gave me," so she is not very sure. GI consult requested for evaluation of anemia, stool OB positive, and elevated CEA. PAST MEDICAL HISTORY: 1. History of breast cancer. 2. Hypertension. 3. Anemia. MEDICATIONS: Please see medication reconciliation list. ALLERGIES: No known drug allergies. SOCIAL HISTORY: Currently lives in [facility]. No recent history of tobacco, alcohol, or IV drug abuse. FAMILY HISTORY: Noncontributory. REVIEW OF SYSTEMS: The patient is a very poor historian. PHYSICAL EXAMINATION: VITAL SIGNS: Temperature 98.1, pulse 75, respirations 18, and blood pressure is 119/68. HEENT: Normocephalic and atraumatic. Sclerae anicteric. NECK: Supple. No lymphadenopathy. CARDIOVASCULAR: Regular rate and rhythm. Plus S1 and S2. LUNGS: Decreased breath sounds bilaterally. ABDOMEN: Soft and nontender. No rebound. No guarding. No peritoneal signs. EXTREMITIES: No cyanosis, no clubbing, and no edema. LABORATORY DATA: White count is 4.5; hemoglobin on admission was 6.5, now 8.8 after transfusion; and platelet count is 277. CEA was elevated at 111, almost 112. CA 19-9 is also elevated at 1280. Albumin was 2.9. Alkaline phosphatase 692. ASSESSMENT AND PLAN: This is a 76-year-old female with anemia and stool OB positive, elevated CEA, elevated CA-19-9, elevated alkaline phosphatase, low albumin. These are all highly suspicious for metastatic carcinoma. PLAN: The patient is going for CT of the abdomen and pelvis. The patient also needs an endoscopy, colonoscopy given there is evidence of anemia and gastrointestinal bleeding. I called the family to get the consent. Nobody was answering phone and there was no way to leave a message, mailbox was full So, we will continue to try to get hold of the family and to see if we can get a consent for endoscopy and colonoscopy tomorrow. I want to thank Dr. Goyal for this kind referral. Forest Carballo M.D. DR: ANDREW JOB#: [id number] CC: Ginger Goyal M.D.; Fax#: [phone]
[2017-04-13 11:40] VITALS: BP 111/69
[2017-04-13] MEDS: Norco 5mg/325mg tab ORAL PRN ×2 (12:09→22:50)
--- NOTE | 2017-04-13 14:54 | GI Progress Note ---
Assessment/Plan Problems: (1) Elevated CEA ICD Codes: R97.0 - Elevated carcinoembryonic antigen [CEA] SNOMED: 91987257, 536024507 (2) High serum carbohydrate antigen 19-9 (CA19-9) ICD Codes: R79.89 - Other specified abnormal findings of blood chemistry SNOMED: 316657458, 900187701 (3) Occult blood in stools ICD Codes: R19.5 - Other fecal abnormalities SNOMED: 50755737, 156943005 (4) Anemia ICD Codes: D64.9 - Anemia, unspecified SNOMED: 631062340 Qualifiers: Qualified Codes: D64.9 - Anemia, unspecified Status: unchanged Status Narrative Discussed with Dr. Carballo. Assessment/Plan elevated CEA >> 112 elevated CA 19-9 >> 481 OB stool positive EGD/colonoscopy cancelled >> patient refused to sign consent, indications explained to patient. ordered APCT monitor H&H, prn transfusions ok to adv diet fu B12/folate fu oncology recs fu labs Subjective Gastrointestinal/Abdominal: Reports: no symptoms Subjective wants to be discharged refusing any procedure Objective Last 24 Hour Vital Signs Date Time Temp Pulse Resp B/P (MAP) Pulse Ox O2 Delivery O2 Flow Rate FiO2 04/13/17 13:08 98.0 04/13/17 12:00 111/69 04/13/17 11:40 98.0 75 20 111/69 96 Room Air 04/13/17 09:00 89 100/47 04/13/17 08:12 98.2 89 19 100/47 96 Room Air 04/13/17 05:52 107/51 04/13/17 04:06 97.6 61 19 107/51 98 Room Air 04/13/17 00:00 104/51 04/12/17 23:51 97.6 71 20 104/51 98 Room Air 04/12/17 20:57 97.9 81 21 100/63 98 Room Air 04/12/17 16:49 111/66 04/12/17 16:33 97.9 90 20 111/66 98 Room Air Intake and Output 04/13/17 04/14/17 19:00 07:00 Intake Total 500 ml Output Total 520 ml Balance -20 ml Intake Oral 500 ml Output Urine Total 520 ml Laboratory Tests Test 04/13/17 06:00 White Blood Count 5.0 K/UL (4.8-10.8) Red Blood Count 2.87 M/UL (4.20-5.40) L Hemoglobin 9.0 G/DL (12.0-16.0) L Hematocrit 28.2 % (37.0-47.0) L Mean Corpuscular Volume 98 FL (80-99) Mean Corpuscular Hemoglobin 31.5 PG (27.0-31.0) H Mean Corpuscular Hemoglobin Concent 32.1 G/DL (32.0-36.0) Red Cell Distribution Width 15.4 % (11.6-14.8) H Platelet Count 283 K/UL (150-450) Mean Platelet Volume 5.3 FL (6.5-10.1) L Neutrophils (%) (Auto) 37.7 % (45.0-75.0) L Lymphocytes (%) (Auto) 50.4 % (20.0-45.0) H Monocytes (%) (Auto) 9.9 % (1.0-10.0) Eosinophils (%) (Auto) 1.2 % (0.0-3.0) Basophils (%) (Auto) 0.8 % (0.0-2.0) Sodium Level 144 mEQ/L (135-145) Potassium Level 4.6 mEQ/L (3.4-4.9) Chloride Level 106 mEQ/L (98-107) Carbon Dioxide Level 24 mEQ/L (20-30) Anion Gap 14 (5-15) Blood Urea Nitrogen 5 mg/dL (7-23) L Creatinine 0.6 mg/dL (0.5-0.9) Estimat Glomerular Filtration Rate mL/min (>60) Glucose Level 91 mg/dL (74-106) Calcium Level 8.5 mg/dL (8.6-10.2) L Total Bilirubin < 0.2 mg/dL (0.0-1.2) Aspartate Amino Transf (AST/SGOT) 16 U/L (5-40) Alanine Aminotransferase (ALT/SGPT) 8 U/L (3-33) Alkaline Phosphatase 786 U/L (35-104) H Total Protein 6.8 g/dL (6.6-8.7) Albumin 2.9 g/dL (3.5-5.2) L Globulin 3.9 g/dL Albumin/Globulin Ratio 0.7 (1.0-2.7) L Height (Feet): 5 Height (Inches): 5.00 Weight (Pounds): 149 General Appearance: no apparent distress, alert Cardiovascular: normal rate Respiratory/Chest: normal breath sounds, no respiratory distress Abdominal Exam: normal bowel sounds, non tender, soft Extremities: normal range of motion Celia Florian N.P. Apr 13, 2017 14:54
--- NOTE | 2017-04-13 15:49 | Pulmonology Progress Note ---
Assessment/Plan Problems: (1) Anemia (2) Hypothyroid (3) Breast cancer Assessment/Plan pt refusing colonoscopy refusing bone scan refusing CT abd/ pelvis she wants to go home with [facility]. Subjective ROS Limited/Unobtainable: No Constitutional: Reports: no symptoms HEENT: Repors: no symptoms Respiratory: Reports: no symptoms Allergies: Coded Allergies: No Known Allergies (Unverified , 04/09/17) Objective Last 24 Hour Vital Signs Date Time Temp Pulse Resp B/P (MAP) Pulse Ox O2 Delivery O2 Flow Rate FiO2 04/13/17 13:08 98.0 04/13/17 12:00 111/69 04/13/17 11:40 98.0 75 20 111/69 96 Room Air 04/13/17 09:00 89 100/47 04/13/17 08:12 98.2 89 19 100/47 96 Room Air 04/13/17 05:52 107/51 04/13/17 04:06 97.6 61 19 107/51 98 Room Air 04/13/17 00:00 104/51 04/12/17 23:51 97.6 71 20 104/51 98 Room Air 04/12/17 20:57 97.9 81 21 100/63 98 Room Air 04/12/17 16:49 111/66 04/12/17 16:33 97.9 90 20 111/66 98 Room Air Intake and Output 04/13/17 04/14/17 19:00 07:00 Intake Total 500 ml Output Total 520 ml Balance -20 ml Intake Oral 500 ml Output Urine Total 520 ml General Appearance: cachetic HEENT: normocephalic, atraumatic Respiratory/Chest: chest wall non-tender, lungs clear Breasts: no masses Cardiovascular: normal peripheral pulses Abdomen: normal bowel sounds, soft, non tender Genitourinary: normal external genitalia Extremities: no cyanosis Skin: no rash, no ulcers Neurologic/Psychiatric: director new product II-XII grossly normal, no motor/sensory deficits Lymphatic: no neck adenopathy Musculoskeletal: normal muscle bulk Laboratory Tests 04/13/17 06:00: White Blood Count 5.0, Red Blood Count 2.87L, Hemoglobin 9.0L, Hematocrit 28.2L , Mean Corpuscular Volume 98, Mean Corpuscular Hemoglobin 31.5H, Mean Corpuscular Hemoglobin Concent 32.1, Red Cell Distribution Width 15.4H, Platelet Count 283, Mean Platelet Volume 5.3L, Neutrophils (%) (Auto) 37.7L, Lymphocytes (%) (Auto) 50.4H, Monocytes (%) (Auto) 9.9, Eosinophils (%) (Auto) 1.2, Basophils (%) (Auto) 0.8, Sodium Level 144, Potassium Level 4.6, Chloride Level 106, Carbon Dioxide Level 24, Anion Gap 14, Blood Urea Nitrogen 5L, Creatinine 0.6, Estimat Glomerular Filtration Rate , Glucose Level 91, Calcium Level 8.5L, Total Bilirubin < 0.2, Aspartate Amino Transf (AST/SGOT) 16, Alanine Aminotransferase (ALT/SGPT) 8, Alkaline Phosphatase 786H, Total Protein 6.8, Albumin 2.9L, Globulin 3.9, Albumin/Globulin Ratio 0.7L Current Medications Medications (Trade) Dose Ordered Sig/Neymar Route PRN Reason Start Time Stop Time Status Last Admin Dose Admin Acetaminophen (Tylenol) 650 mg Q4H PRN ORAL fever 04/09/17 22:30 05/09/17 22:29 04/10/17 00:17 Acetaminophen/ Hydrocodone Bitart ([place] 5/325) 1 tab Q4H PRN ORAL Moderate Pain (Pain Scale 4-6) 04/11/17 15:00 04/18/17 14:59 04/13/17 12:09 Al Hydroxide/Mg Hydroxide (Mylanta II) 30 ml Q6H PRN ORAL dyspepsia 04/09/17 22:30 05/09/17 22:29 Albuterol/ Ipratropium (DuoNeb 0.5-3(2.5)mg/3ml) 3 ml Q4H PRN HHN Shortness of Breath 04/12/17 16:00 04/17/17 15:59 Atenolol (Tenormin) 50 mg DAILY ORAL 04/10/17 09:00 05/10/17 08:59 Ceftriaxone Sodium 1 gm/ Dextrose 55 ml @ 110 mls/hr Q24H IVPB 04/11/17 22:00 04/18/17 21:59 Clonidine HCl (Catapres) 0.1 mg Q6H PRN ORAL For High Blood Pressure 04/13/17 12:30 05/13/17 12:29 Dextrose (Dextrose 50%) STAT PRN IV Hypoglycemia 04/09/17 22:30 05/09/17 22:29 Gabapentin (Neurontin) 100 mg THREE TIMES A DAY ORAL 04/10/17 09:00 05/10/17 08:59 04/13/17 12:09 Levothyroxine Sodium (Synthroid) 50 mcg ACBREAKFAST ORAL 04/10/17 06:30 05/10/17 06:29 04/13/17 05:46 Lorazepam (Ativan 2mg/ml 1ml) 0.5 mg Q4H PRN IV For Anxiety 04/09/17 22:30 04/16/17 22:29 Morphine Sulfate (Morphine Sulfate) 1 mg EVERY 4 HOURS PRN IVP Severe Pain (Pain Scale 7-10) 04/11/17 15:00 04/18/17 14:59 Ondansetron HCl (Zofran) 4 mg Q6H PRN IVP Nausea & Vomiting 04/09/17 22:30 05/09/17 22:29 Polyethylene Glycol (Miralax) 17 gm HSPRN PRN ORAL Constipation 04/09/17 22:30 05/09/17 22:29 Zolpidem Tartrate (Ambien) 5 mg HSPRN PRN ORAL Insomnia 04/09/17 22:30 04/16/17 22:29 NEIL CRANE Apr 13, 2017 15:49
[2017-04-13 15:59] VITALS: BP 116/59
--- NOTE | 2017-04-13 17:17 | General Progress Note ---
Assessment/Plan Assessment/Plan IMPRESSION/ PLAN 1. Anemia requiring blood transfusion with decrease in H/H --> occult blood positive,egd/colo and ct abdomen scheduled for 04/13 --> counts improved 2. Anemia of chronic disease. 3. Elevated level of CEA, rule out gastrointestinal malignancy. 4. History of breast cancer. 5. Hypertension. 6. Hypothyroidism. 7. Malnutrition. 8. Failure to thrive. Subjective Date patient seen: Apr 12, 2017 Constitutional: Reports: no symptoms HEENT: Reports: no symptoms Cardiovascular: Reports: no symptoms Respiratory: Reports: no symptoms Gastrointestinal/Abdominal: Reports: no symptoms Genitourinary: Reports: no symptoms Neurologic/Psychiatric: Reports: no symptoms Endocrine: Reports: no symptoms Hematologic/Lymphatic: Reports: anemia Allergies: Coded Allergies: No Known Allergies (Unverified , 04/09/17) Subjective s/p blood transfusion, hgb better Objective Last 24 Hour Vital Signs Date Time Temp Pulse Resp B/P (MAP) Pulse Ox O2 Delivery O2 Flow Rate FiO2 04/13/17 15:59 98.6 86 20 116/59 100 Room Air 04/13/17 13:08 98.0 04/13/17 12:00 111/69 04/13/17 11:40 98.0 75 20 111/69 96 Room Air 04/13/17 09:00 89 100/47 04/13/17 08:12 98.2 89 19 100/47 96 Room Air 04/13/17 05:52 107/51 04/13/17 04:06 97.6 61 19 107/51 98 Room Air 04/13/17 00:00 104/51 04/12/17 23:51 97.6 71 20 104/51 98 Room Air 04/12/17 20:57 97.9 81 21 100/63 98 Room Air Intake and Output 04/13/17 04/14/17 19:00 07:00 Intake Total 500 ml Output Total 520 ml Balance -20 ml Intake Oral 500 ml Output Urine Total 520 ml Laboratory Tests 04/13/17 06:00: White Blood Count 5.0, Red Blood Count 2.87L, Hemoglobin 9.0L, Hematocrit 28.2L , Mean Corpuscular Volume 98, Mean Corpuscular Hemoglobin 31.5H, Mean Corpuscular Hemoglobin Concent 32.1, Red Cell Distribution Width 15.4H, Platelet Count 283, Mean Platelet Volume 5.3L, Neutrophils (%) (Auto) 37.7L, Lymphocytes (%) (Auto) 50.4H, Monocytes (%) (Auto) 9.9, Eosinophils (%) (Auto) 1.2, Basophils (%) (Auto) 0.8, Sodium Level 144, Potassium Level 4.6, Chloride Level 106, Carbon Dioxide Level 24, Anion Gap 14, Blood Urea Nitrogen 5L, Creatinine 0.6, Estimat Glomerular Filtration Rate , Glucose Level 91, Calcium Level 8.5L, Total Bilirubin < 0.2, Aspartate Amino Transf (AST/SGOT) 16, Alanine Aminotransferase (ALT/SGPT) 8, Alkaline Phosphatase 786H, Total Protein 6.8, Albumin 2.9L, Globulin 3.9, Albumin/Globulin Ratio 0.7L Height (Feet): 5 Height (Inches): 5.00 Weight (Pounds): 149 General Appearance: no apparent distress EENT: normal ENT inspection Neck: normal alignment Edema: no edema noted Pedal (L), no edema noted Pedal (R) Neurologic: terrazzo journeyman II-XII grossly normal Skin: warm/dry Franki Romero Apr 13, 2017 17:17
[2017-04-13 20:00] VITALS: BP 104/59
[2017-04-13] MEDS: cefTRIAXone 1 GM in D5W 55 ML IVPB SCH (21:58)
[2017-04-14] VITALS: BP 100/55
[2017-04-14 03:50] LABS: CA 27.29 175.5 U/mL (0.0-38.6)
[2017-04-14 04:00] VITALS: BP 107/60
[2017-04-14 07:48] LABS: LYMPHOCYTES % (AUTO) 46.2 % (20.0-45.0); MEAN CORPUSCULAR HEMOGLOBIN 30.7 PG (27.0-31.0); MEAN CORPUSCULAR HGB CONC 31.2 G/DL (32.0-36.0); MEAN CORPUSCULAR VOLUME 98 FL (80-99); MEAN PLATELET VOLUME 5.2 FL (6.5-10.1); MONOCYTES % (AUTO) 7.2 % (1.0-10.0); NEUTROPHILS % (AUTO) 44.6 % (45.0-75.0); PLATELET COUNT 283 K/UL (150-450); RED BLOOD COUNT 2.95 M/UL (4.20-5.40); RED CELL DISTRIBUTION WIDTH 15.3 % (11.6-14.8); WHITE BLOOD COUNT 5.1 K/UL (4.8-10.8)
[2017-04-14 07:53] LABS: ANION GAP 12 (5-15); CALCIUM 8.3 mg/dL (8.6-10.2); CARBON DIOXIDE 24 mEQ/L (20-30); CHLORIDE 107 mEQ/L (98-107); CREATININE 0.6 mg/dL (0.5-0.9); HEMOLYSIS 3; SODIUM 143 mEQ/L (135-145)
[2017-04-14 08:33] VITALS: BP 94/75
[2017-04-14 09:00] VITALS: BP 94/75
[2017-04-14 09:54] LABS: CA 125 74.8 U/mL (0.0-38.1); CA15-3 141.1 U/mL (0.0-25.0)
--- NOTE | 2017-04-14 10:40 | GI Progress Note ---
Assessment/Plan Problems: (1) Elevated CEA ICD Codes: R97.0 - Elevated carcinoembryonic antigen [CEA] SNOMED: 78508916, 520117432 (2) High serum carbohydrate antigen 19-9 (CA19-9) ICD Codes: R79.89 - Other specified abnormal findings of blood chemistry SNOMED: 385409529, 447207635 (3) Occult blood in stools ICD Codes: R19.5 - Other fecal abnormalities SNOMED: 26776351, 326021270 (4) Anemia ICD Codes: D64.9 - Anemia, unspecified SNOMED: 540195494 Qualifiers: Qualified Codes: D64.9 - Anemia, unspecified Status: unchanged Status Narrative Discussed with Dr. Carballo. Assessment/Plan elevated CEA >> 112 elevated CA 19-9 >> 481 OB stool positive EGD/colonoscopy cancelled >> patient refused to sign consent, indications explained to patient. fu APCT monitor H&H, prn transfusions regular diet fu oncology recs fu labs The patient was seen and examined at bedside and all new and available data was reviewed in the patients chart. I agree with the above findings, impression and plan. (Patient seen earlier today. Signature stamp does not reflect patient encounter time.). -Forest Carballo MD Subjective Subjective wants to be discharged refusing any procedure Objective Last 24 Hour Vital Signs Date Time Temp Pulse Resp B/P (MAP) Pulse Ox O2 Delivery O2 Flow Rate FiO2 04/14/17 09:00 103 94/75 04/14/17 08:33 96.3 103 20 94/75 Room Air 04/14/17 04:00 98.0 77 18 107/60 98 Room Air 04/14/17 00:00 97.9 82 18 100/55 98 Room Air 04/13/17 20:00 98.2 89 20 104/59 100 Room Air 04/13/17 15:59 98.6 86 20 116/59 100 Room Air 04/13/17 13:08 98.0 04/13/17 12:00 111/69 04/13/17 11:40 98.0 75 20 111/69 96 Room Air Laboratory Tests Test 04/14/17 05:40 White Blood Count 5.1 K/UL (4.8-10.8) Red Blood Count 2.95 M/UL (4.20-5.40) L Hemoglobin 9.1 G/DL (12.0-16.0) L Hematocrit 29.1 % (37.0-47.0) L Mean Corpuscular Volume 98 FL (80-99) Mean Corpuscular Hemoglobin 30.7 PG (27.0-31.0) Mean Corpuscular Hemoglobin Concent 31.2 G/DL (32.0-36.0) L Red Cell Distribution Width 15.3 % (11.6-14.8) H Platelet Count 283 K/UL (150-450) Mean Platelet Volume 5.2 FL (6.5-10.1) L Neutrophils (%) (Auto) 44.6 % (45.0-75.0) L Lymphocytes (%) (Auto) 46.2 % (20.0-45.0) H Monocytes (%) (Auto) 7.2 % (1.0-10.0) Eosinophils (%) (Auto) 1.0 % (0.0-3.0) Basophils (%) (Auto) 1.0 % (0.0-2.0) Sodium Level 143 mEQ/L (135-145) Potassium Level 4.0 mEQ/L (3.4-4.9) Chloride Level 107 mEQ/L (98-107) Carbon Dioxide Level 24 mEQ/L (20-30) Anion Gap 12 (5-15) Blood Urea Nitrogen 4 mg/dL (7-23) L Creatinine 0.6 mg/dL (0.5-0.9) Estimat Glomerular Filtration Rate mL/min (>60) Glucose Level 91 mg/dL (74-106) Calcium Level 8.3 mg/dL (8.6-10.2) L Height (Feet): 5 Height (Inches): 5.00 Weight (Pounds): 149 General Appearance: no apparent distress, alert, thin Cardiovascular: normal rate, regular rhythm Respiratory/Chest: normal breath sounds, no respiratory distress Abdominal Exam: normal bowel sounds, non tender, soft Celia Florian N.PWendy Apr 14, 2017 10:40 FOREST CARBALLO Apr 14, 2017 12:06
--- NOTE | 2017-04-14 12:10 | General Progress Note ---
Assessment/Plan Assessment/Plan IMPRESSION/ PLAN 1. Anemia requiring blood transfusion with decrease in H/H --> occult blood positive, patient refused egd/colo --> counts improved 2. Anemia of chronic disease. 3. Elevated tumor markers CEA and CA 19-9 rule out malignancy. -- patient refusing intervention, wants to be dc, considering hospice 4. History of breast cancer. 5. Hypertension. 6. Hypothyroidism. 7. Malnutrition. 8. Failure to thrive. Subjective Date patient seen: Apr 13, 2017 Constitutional: Reports: no symptoms HEENT: Reports: no symptoms Cardiovascular: Reports: no symptoms Respiratory: Reports: no symptoms Gastrointestinal/Abdominal: Reports: no symptoms Genitourinary: Reports: no symptoms Neurologic/Psychiatric: Reports: no symptoms Endocrine: Reports: no symptoms Hematologic/Lymphatic: Reports: anemia Allergies: Coded Allergies: No Known Allergies (Unverified , 04/09/17) Subjective refusing procedures Objective Last 24 Hour Vital Signs Date Time Temp Pulse Resp B/P (MAP) Pulse Ox O2 Delivery O2 Flow Rate FiO2 04/14/17 09:00 103 94/75 04/14/17 08:33 96.3 103 20 94/75 Room Air 04/14/17 04:00 98.0 77 18 107/60 98 Room Air 04/14/17 00:00 97.9 82 18 100/55 98 Room Air 04/13/17 20:00 98.2 89 20 104/59 100 Room Air 04/13/17 15:59 98.6 86 20 116/59 100 Room Air 04/13/17 13:08 98.0 Laboratory Tests 04/14/17 05:40: White Blood Count 5.1, Red Blood Count 2.95L, Hemoglobin 9.1L, Hematocrit 29.1L , Mean Corpuscular Volume 98, Mean Corpuscular Hemoglobin 30.7, Mean Corpuscular Hemoglobin Concent 31.2L, Red Cell Distribution Width 15.3H, Platelet Count 283, Mean Platelet Volume 5.2L, Neutrophils (%) (Auto) 44.6L, Lymphocytes (%) (Auto) 46.2H, Monocytes (%) (Auto) 7.2, Eosinophils (%) (Auto) 1.0, Basophils (%) (Auto) 1.0, Sodium Level 143, Potassium Level 4.0, Chloride Level 107, Carbon Dioxide Level 24, Anion Gap 12, Blood Urea Nitrogen 4L, Creatinine 0.6, Estimat Glomerular Filtration Rate , Glucose Level 91, Calcium Level 8.3L Height (Feet): 5 Height (Inches): 5.00 Weight (Pounds): 149 General Appearance: no apparent distress EENT: PERRL/EOMI Cardiovascular: regular rhythm Respiratory/Chest: no accessory muscle use Abdomen: no organomegaly Extremities: normal inspection Neurologic: oriented x 3 Skin: warm/dry Franki Romero Apr 14, 2017 12:10
--- NOTE | 2017-04-14 17:32 | General Progress Note ---
Assessment/Plan Assessment/Plan IMPRESSION/ PLAN 1. Anemia requiring blood transfusion with decrease in H/H --> occult blood positive, patient refused egd/colo and any procedure --> counts improved 2. Anemia of chronic disease. 3. Elevated tumor markers CEA and CA 19-9, rule out malignancy. -- patient refusing intervention, wants to be dc, considering hospice 4. History of breast cancer. 5. Hypertension. 6. Hypothyroidism. 7. Malnutrition. 8. Failure to thrive. Subjective Constitutional: Reports: no symptoms HEENT: Reports: no symptoms Cardiovascular: Reports: no symptoms Respiratory: Reports: no symptoms Gastrointestinal/Abdominal: Reports: no symptoms Genitourinary: Reports: no symptoms Neurologic/Psychiatric: Reports: no symptoms Endocrine: Reports: no symptoms Hematologic/Lymphatic: Reports: no symptoms Allergies: Coded Allergies: No Known Allergies (Unverified , 04/09/17) Subjective refusing procedures, was dc to snf Objective Last 24 Hour Vital Signs Date Time Temp Pulse Resp B/P (MAP) Pulse Ox O2 Delivery O2 Flow Rate FiO2 04/14/17 09:00 103 94/75 04/14/17 08:33 96.3 103 20 94/75 Room Air 04/14/17 04:00 98.0 77 18 107/60 98 Room Air 04/14/17 00:00 97.9 82 18 100/55 98 Room Air 04/13/17 20:00 98.2 89 20 104/59 100 Room Air Laboratory Tests 04/14/17 05:40: White Blood Count 5.1, Red Blood Count 2.95L, Hemoglobin 9.1L, Hematocrit 29.1L , Mean Corpuscular Volume 98, Mean Corpuscular Hemoglobin 30.7, Mean Corpuscular Hemoglobin Concent 31.2L, Red Cell Distribution Width 15.3H, Platelet Count 283, Mean Platelet Volume 5.2L, Neutrophils (%) (Auto) 44.6L, Lymphocytes (%) (Auto) 46.2H, Monocytes (%) (Auto) 7.2, Eosinophils (%) (Auto) 1.0, Basophils (%) (Auto) 1.0, Sodium Level 143, Potassium Level 4.0, Chloride Level 107, Carbon Dioxide Level 24, Anion Gap 12, Blood Urea Nitrogen 4L, Creatinine 0.6, Estimat Glomerular Filtration Rate , Glucose Level 91, Calcium Level 8.3L Height (Feet): 5 Height (Inches): 5.00 Weight (Pounds): 149 General Appearance: no apparent distress EENT: normal ENT inspection, TMs normal Neck: normal alignment, supple Respiratory/Chest: no respiratory distress, no accessory muscle use Abdomen: non tender 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
[2017-04-15 07:48] LABS: OTHERS PATHOLOGIST COMMENT
[2017-04-15 07:50] LABS: OTHERS PATHOLOGIST COMMENT
--- NOTE | 2017-04-15 14:51 | Diagnostic Imaging Report ---
APPROVED REPORT CPT Code: 36641 Present Symptoms Lower Extremity Pain: Bilateral BILATERAL: Imaging reveals a patent deep venous system bilaterally. There is no evidence of thrombus within the femoral, popliteal or tibial segments. The greater saphenous veins are also within normal limits. Doppler indicates normal spontaneous flow within these segments.
--- NOTE | 2017-04-16 18:07 | Discharge Summary ---
Discharge Summary Hospital Course Date of Admission Apr 09, 2017 at 21:43 Date of Discharge Apr 14, 2017 at 10:30 Admitting Diagnosis ANEMIA MADALYN Land is a 76 year old female who was admitted on Apr 09, 2017 at 21: 43 for Anemia Hospital Course [id number] Discharge Discharge Disposition Patient was discharged to SNF/Subacute Facility(03) Discharge Diagnoses: Naz Hernandez NP Apr 16, 2017 18:07
--- NOTE | 2017-04-17 04:15 | Discharge Summary 2 SIG ---
DATE OF ADMISSION: 04/09/2017 DATE OF DISCHARGE: 04/14/2017 CONSULTANTS: 1. Forest Carballo M.D. 2. Franki Romero M.D. HOSPITAL COURSE: The patient is a 76-year-old female, who was transferred to [facility] for evaluation of abnormal labs. The patient had laboratory work recently and showed low hemoglobin and hematocrit. On evaluation at ED, blood work showed anemia. Hemoglobin was 6.5 and hematocrit was 19. There was no leukocytosis. Urinalysis was positive for bacteria. EKG done showed normal sinus rhythm with no acute changes and chest x-ray showed mild atelectasis. She was started on antibiotic and was admitted to medical floor for evaluation of anemia and received total of two units packed RBC blood transfusion. She was given IV ceftriaxone. She had an elevated CEA and elevated CA-19-9 with elevated alkaline phosphatase, highly suspicious for metastatic carcinoma. The patient will need EGD and colonoscopy, however, the procedure was canceled as the patient refused to sign consent. The patient was refusing further intervention and wants to be discharged. Blood levels stabilized post transfusion and the patient was eventually discharged to SNF. FINAL DIAGNOSES: 1. Acute anemia, requiring transfusion. 2. Hypothyroidism. 3. Breast carcinoma. 4. Anemia of chronic disease. 5. Malnutrition with failure to thrive. 6. Elevated tumor marker. DISPOSITION: The patient was discharged to [facility]. DISCHARGE MEDICATIONS: Refer to medication list. Ginger Goyal M.D. I have been assigned to dictate discharge summary on this account and I was not involved in the patient's management. Naz Hernandez N.P. DR: Faith JOB#: [id number] CC: DAMION
== END 2017-04-14 10:30 | DRG 812 ==
LOC: EDBD 20:15 → EMR 20:32 → 4E 21:43 → EDBEDREQ 23:10 → 4E 04-11 05:23
PROC: 30233N1 Transfusion of Nonautologous Red Blood Cells into Peripheral Vein, Percutaneous Approach (ICD-10-PCS; principal; 2017-04-09)
DX: D50.9 Iron deficiency anemia, unspecified (principal); E46 Unspecified protein-calorie malnutrition; N39.0 Urinary tract infection, site not specified; I10 Essential (primary) hypertension; E03.9 Hypothyroidism, unspecified; R62.7 Adult failure to thrive; R97.0 Elevated carcinoembryonic antigen [CEA]; Z91.19 Patient's noncompliance with other medical treatment and regimen; Z68.24 Body mass index [BMI] 24.0-24.9, adult; Z53.29 Procedure and treatment not carried out because of patient's decision for other reasons; Z85.3 Personal history of malignant neoplasm of breast
CPT/HCPCS: 36415; 71010; 80048; 80053; 81003; 82105; 82270; 82378; 82550; 82553; 82607; 82746; 83540; 83550; 83605; 83615; 83880; 84443; 84484; 85007; 85025; 85044; 85060; 85379; 85610; 85651; 85730; 86300; 86301; 86304; 86850; 86900; 86901; 86920; 87040; 87081; 87086; 87181; 93005; 93970; 99285